=== PATIENT | female | born 1975 | race Caucasian/White ===

== ENCOUNTER 2017-12-25 13:13 | Emergency (ER) | payer MEDICAID ==
[2017-12-25 13:40] VITALS: BP 113/68
== END 2017-12-25 15:20 | disposition left against medical advice (07) ==
LOC: ED 13:13
DX: R22.1 Localized swelling, mass and lump, neck (principal); R19.00 Intra-abdominal and pelvic swelling, mass and lump, unspecified site; R50.9 Fever, unspecified; Z53.21 Procedure and treatment not carried out due to patient leaving prior to being seen by health care provider
CPT/HCPCS: 96365; 99282

== ENCOUNTER 2018-02-08 09:40 | Emergency (ER) | payer MEDICAID ==
[2018-02-08 10:12] VITALS: BP 117/70
[2018-02-08] MEDS ORDERED: HYDROcod/ACETAM 10 MG/325 MG TABLET PO STA (10:56)
[2018-02-08] MEDS ORDERED: diazePAM 5 MG TABLET PO STA (10:56)
--- NOTE | 2018-02-08 10:59 | ED Physician Documentation ---
History of Present Illness - Stated complaint Stated Complaint: BACK - Chief complaint Chief Complaint: General - History obtained from History obtained from: Patient - Additonal information Additional information: 42-year-old female presents the emergency department with lower back pain and spasm which has been ongoing. The patient injured her back after working out several weeks ago. The patient's symptoms were improving until yesterday when she moved wrong and redeveloped the pain and spasm. The patient did experience some radiation into her buttocks. The patient denies saddle anesthesia, urinary retention, hematuria, fever, history of IV drug use or motor weakness. Symptoms are described as moderate. No significant improvement with [id number] Motrin. No other associated symptoms. Review of Systems Constitutional: denies: Fever, Chills, Sweats Ears: denies: Ear pain Nose: denies: Congestion Throat: denies: Sore throat Cardiac: denies: Chest pain / pressure Respiratory: denies: Cough GI: denies: Abdominal Pain : denies: Dysuria, Incontinent, Hematuria Musculoskeletal: reports: Back pain Neurologic: denies: Generalized weakness, Numbness PD PAST MEDICAL HISTORY - Past Medical History Past Medical History: No - Past Surgical History Past Surgical History: Yes Ortho: Shoulder arthroplasty - Present Medications Home Medications: Ambulatory Orders Medication Instructions Recorded Confirmed Naproxen [Naprosyn] 500 mg PO BID PRN 30 Days #30 02/08/18 tablet diazePAM [Valium] 5 mg PO TID PRN #20 tablet 02/08/18 - Allergies Allergies/Adverse Reactions: Allergies Allergy/AdvReac Type Severity Reaction Status Date / Time bee venom protein (honey bee) Allergy Anaphylaxis Verified 02/08/18 10:13 egg Allergy Hives Verified 02/08/18 10:13 - Social History Does the pt smoke?: No Smoking Status: Former smoker Does the pt drink ETOH?: No Does the pt have substance abuse?: No - Immunizations Immunizations are current?: No Immunizations: TDAP >10years/unknown PD ED PE NORMAL - General General: Alert and oriented X 3 - HEENT HEENT: Atraumatic - Cardiac Cardiac: RRR - Respiratory Respiratory: No respiratory distress - Back Back: Other (The patient has no midline tenderness of the thoracic or lumbar spinous processes. The patient does have paraspinal muscle tenderness worse on the right lumbar paraspinal muscles. No skin changes, rash, signs of abscess or crepitus.) - Derm Derm: Normal color - Extremities Extremities: No deformity - Neuro Neuro: Alert and oriented X 3, No motor deficit, Other (The patient has 5/5 muscle strength in the bilateral lower extremities and has 2/4 patellar reflexes and normal sensation light touch of the lower extremities) - Psych Psych: Normal mood Results - Vitals Vitals: Vital Signs - 24 hr 02/08/18 10:10 Temperature 37 C Heart Rate 71 Respiratory 16 Rate Blood Pressure 117/70 O2 Saturation 99 Oxygen O2 Source Room air PD MEDICAL DECISION MAKING - ED course ED course: The patient's symptoms seem to be consistent with a musculoskeletal etiology for the source of her pain. TheHas no red flags to suggest epidural abscess or acute cauda equina. Currently, there is no injury that would suggest fracture of the lumbar spine and currently I do not think x-rays would be of much utility. The patient appears appropriate for ongoing outpatient management. I discussed with her the findings and plan. The patient understands and agrees. I discussed warning signs and recommended returning to the emergency department immediately for any worsening or any concerns. Departure - Departure Disposition: 01 Home, Self Care Condition: Good Instructions: ED Back Care Tips, ED Exercises Lumbar Muscles, ED Sprain Strain Lumbar Follow-Up: [facility] [Provider Group] [facility] [Provider Group] [facility] [Provider Group] [facility] [Provider Group] Prescriptions: diazePAM [Valium] 5 mg PO TID PRN #20 tablet PRN Reason: Spasms Naproxen [Naprosyn] 500 mg PO BID PRN 30 Days #30 tablet PRN Reason: Pain Comments: Please follow-up with primary care. Please asked them to arrange for outpatient physical therapy to further manage her pain. Please avoid any vigorous workouts. You may also require an outpatient MRI if your symptoms are not improving. Please return back to the emergency department immediately for any worsening or concerns.
== END 2018-02-08 12:01 | disposition home or self-care (01) ==
LOC: ED 09:40 → MERGE 09:40 → ED 12:01
DX: M54.5 Low back pain (principal); M62.830 Muscle spasm of back; Z87.891 Personal history of nicotine dependence
CPT/HCPCS: 99283; A9270; 81001; 81025; 87086

== ENCOUNTER 2018-05-27 08:00 | Outpatient (CLI) | payer MEDICAID ==
[2018-05-27 18:08] LABS: BASOPHILS % (AUTO) 0.4 %; EOSINOPHILS # (AUTO) 0.1 10^3/uL (0.0-0.7); EOSINOPHILS % (AUTO) 1.8 %; HGB - HEMOGLOBIN 14.4 g/dL (12.0-16.0); LYMPHOCYTES # (AUTO) 2.1 10^3/uL (1.5-3.5); LYMPHOCYTES % (AUTO) 33.9 %; MEAN CORPUSCULAR HEMOGLOBIN 28.3 pg (27.0-31.0); MEAN CORPUSCULAR VOLUME 88.4 fL (81.0-99.0); MEAN PLATELET VOLUME 8.6 fL (7.9-10.8); MONOCYTES # (AUTO) 0.4 10^3/uL (0.0-1.0); MONOCYTES % (AUTO) 7.1 %; NEUTROPHILS # (AUTO) 3.5 10^3/uL (1.5-6.6); NEUTROPHILS % (AUTO) 56.8 %; PLT - PLATELET COUNT 286 10^3/uL (130-450); RED CELL DISTRIBUTION WIDTH 14.3 % (12.0-15.0); WHITE BLOOD COUNT 6.2 x10^3/uL (4.8-10.8)
[2018-05-27 18:13] LABS: ALBUMIN/GLOBULIN RATIO 1.7 (1.0-2.2); ALKALINE PHOSPHATASE 53 IU/L (42-121); ALT ALANINE AMINOTRANSFERASE 49 IU/L (10-60); AST ASPARTATE AMINOTRANSFERASE 30 IU/L (10-42); BILIRUBIN,TOTAL 0.9 mg/dL (0.2-1.0); BUN - BLOOD UREA NITROGEN 16 mg/dL (6-20); CALCIUM 9.5 mg/dL (8.5-10.3); CARBON DIOXIDE - CO2 27 mmol/L (21-32); CHLORIDE 102 mmol/L (101-111); CHOL/HDL RATIO 2.3 (<4.4); CHOLESTEROL 202 mg/dL; CREATININE 0.7 mg/dL (0.4-1.0); GFR - MDRD 93 (>89); GLUCOSE 92 mg/dL (70-100); HDL CHOLESTEROL 89 mg/dL; LDL CHOLESTEROL,CALCULATED 99 mg/dL; LDL/HDL RATIO 1.1 (<4.4); SODIUM 138 mmol/L (135-145); TOTAL PROTEIN 7.9 g/dL (6.7-8.2); VLDL CHOLESTEROL 14 mg/dL
[2018-05-27 18:51] LABS: HB2 TOTAL 16.7 g/dL; HEMOGLOBIN A1C 0.49 g/dL; HEMOGLOBIN A1C % 4.8 % (4.6-6.2)
[2018-05-28 12:43] LABS: HEPATITIS C ANTIBODY NON-REACTIVE (NON-REACTIVE)
[2018-05-28 13:21] LABS: HIV AG/AB 4TH GEN NON-REACTIVE (NON-REACTIVE)
[2018-05-29 13:10] LABS: HSV 2 IGG TYPE SPECIFIC AB <0.90 index
== END 2018-05-27 23:59 | disposition home or self-care (01) ==
LOC: LAB.S 08:00
PROVIDERS: ATTEND Nurse Practitioner
DX: Z00.00 Encounter for general adult medical examination without abnormal findings (principal); Z20.2 Contact with and (suspected) exposure to infections with a predominantly sexual mode of transmission
CPT/HCPCS: 36415; 80053; 80061; 82306; 83036; 83721; 84443; 85025; 86695; 86696; 86803; 87389

== ENCOUNTER 2018-07-02 15:50 | Outpatient (CLI) | payer MEDICAID ==
--- NOTE | 2018-07-03 11:10 | XRAY Report ---
Reason: ANKLE PAIN, RIGHT Procedure Date: 07/02/2018 Accession Number: [id number] / [id number] Procedure: XR - Ankle 3 View RT CPT Code: FULL RESULT: EXAM: RIGHT ANKLE RADIOGRAPHY EXAM DATE: 07/02/2018 04:34 PM. CLINICAL HISTORY: Ankle pain, right. COMPARISON: None. TECHNIQUE: 3 views. FINDINGS: Bones: Normal. No fractures or bone lesions. Joints: Normal. No effusion. No subluxations. The ankle mortise is normally aligned. Soft Tissues: Normal. No soft tissue swelling. IMPRESSION: Normal ankle radiography. [facility]
== END 2018-07-02 15:51 | disposition home or self-care (01) ==
LOC: DI 15:50
PROVIDERS: ATTEND Nurse Practitioner
DX: M25.571 Pain in right ankle and joints of right foot (principal)

== ENCOUNTER 2018-07-02 15:53 | Outpatient (CLI) | payer MEDICAID ==
--- NOTE | 2018-07-03 10:17 | Mammography Report ---
Reason: ANNUAL SCREENING Procedure Date: 07/02/2018 Accession Number: [id number] / [id number] Procedure: HOSSEIN - Screening Mammo Dig Bilat CPT Code: FULL RESULT: EXAM: Screening Mammo Dig Bilat DATE: 07/02/2018 4:20 PM CLINICAL HISTORY: Screening encounter. Baseline mammogram. No reported risk factors. TECHNIQUE: Bilateral CC and MLO views were obtained. A left laterally exaggerated CC view is obtained. COMPARISON: None FINDINGS: The breasts demonstrate heterogeneously dense fibroglandular parenchyma bilaterally. There are coarse typically benign calcifications. No suspicious masses, clustered microcalcifications, or regions of architectural distortion are identified. IMPRESSION: Benign findings RECOMMENDATION: Routine annual screening unless otherwise clinically indicated. BIRADS CATEGORY 2: Benign findings STANDARD QUALIFYING STATEMENTS: 1. This examination was reviewed with the aid of Computer-Aided Detection (CAD). 2. A negative or benign imaging report should not delay biopsy if clinically suspicious findings are present. Consider surgical consultation if warrented. More than 5% of cancers are not identified by imaging. 3. Dense breasts may obscure an underlying neoplasm.
== END 2018-07-02 15:54 | disposition home or self-care (01) ==
LOC: DI 15:53
DX: Z12.31 Encounter for screening mammogram for malignant neoplasm of breast (principal); M25.571 Pain in right ankle and joints of right foot
CPT/HCPCS: 77067

== ENCOUNTER 2019-11-20 08:00 | Outpatient (CLI) | payer MEDICAID ==
--- NOTE | 2019-10-17 18:11 | XRAY Report ---
PROCEDURE: Shoulder 3 View LT INDICATIONS: PAIN IN LEFT SHOULDER TECHNIQUE: 3 views of the shoulder were acquired. COMPARISON: None. FINDINGS: Bones: No fractures or dislocations. No suspicious bony lesions. Visualized ribs appear intact. Soft tissues: No suspicious soft tissue calcifications. IMPRESSION: No acute radiographic findings. If pain persists, advanced imaging with MR or CT could b e used to further characterize findings. Reviewed by: Norma Jimenez MD on 10/17/2019 6:10 PM PDT Approved by: Norma Jimenez MD on 10/17/2019 6:10 PM PDT Station ID: [id number]
== END 2019-11-20 23:59 | disposition home or self-care (01) ==
LOC: DI.S 08:00
PROVIDERS: ATTEND Emergency Medicine
DX: M25.512 Pain in left shoulder (principal)

== ENCOUNTER 2020-01-07 09:55 | Outpatient (CLI) | payer MEDICAID ==
[2020-01-07 15:27] LABS: BASOPHILS % (AUTO) 0.5 %; EOSINOPHILS # (AUTO) 0.1 10^3/uL (0.0-0.7); EOSINOPHILS % (AUTO) 1.6 %; HGB - HEMOGLOBIN 12.7 g/dL (12.0-16.0); LYMPHOCYTES % (AUTO) 34.8 %; MEAN CORPUSCULAR HGB CONC 30.8 g/dL (32.0-36.0); MEAN CORPUSCULAR VOLUME 90.7 fL (81.0-99.0); MEAN PLATELET VOLUME 10.2 fL (7.9-10.8); MONOCYTES # (AUTO) 0.4 10^3/uL (0.0-1.0); NEUTROPHILS # (AUTO) 3.1 10^3/uL (1.5-6.6); NEUTROPHILS % (AUTO) 55.9 %; PLT - PLATELET COUNT 302 10^3/uL (130-450); RED BLOOD COUNT 4.54 10^6/uL (4.20-5.40); RED CELL DISTRIBUTION WIDTH 13.1 % (12.0-15.0); WHITE BLOOD COUNT 5.6 x10^3/uL (4.8-10.8)
[2020-01-07 15:29] LABS: ALBUMIN 4.3 g/dL (3.2-5.5); ALBUMIN/GLOBULIN RATIO 1.7 (1.0-2.2); ALKALINE PHOSPHATASE 45 IU/L (42-121); ALT ALANINE AMINOTRANSFERASE 15 IU/L (10-60); AST ASPARTATE AMINOTRANSFERASE 16 IU/L (10-42); BILIRUBIN,TOTAL 0.9 mg/dL (0.2-1.0); BUN - BLOOD UREA NITROGEN 16 mg/dL (6-20); CALCIUM 9.4 mg/dL (8.5-10.3); CARBON DIOXIDE - CO2 26 mmol/L (21-32); CHLORIDE 104 mmol/L (101-111); CHOL/HDL RATIO 2.3 (<4.4); CHOLESTEROL 166 mg/dL; CREATININE 0.7 mg/dL (0.4-1.0); GLUCOSE 86 mg/dL (70-100); HDL CHOLESTEROL 72 mg/dL; SODIUM 139 mmol/L (135-145); TOTAL PROTEIN 6.8 g/dL (6.7-8.2)
== END 2020-01-07 09:56 | disposition home or self-care (01) ==
LOC: LAB.S 09:55
PROVIDERS: ATTEND Registered Nurse
DX: Z00.00 Encounter for general adult medical examination without abnormal findings (principal)
CPT/HCPCS: 36415; 80053; 80061; 83721; 84443; 85025

== ENCOUNTER 2020-02-23 08:00 | Outpatient (CLI) | payer MEDICAID ==
[2020-02-24 19:58] LABS: CANDIDA GROUP DNA NEGATIVE (NEGATIVE); CANDIDA KRUSEI DNA NEGATIVE (NEGATIVE); TRICHOMONAS VAGINALIS DNA NEGATIVE (NEGATIVE)
== END 2020-02-23 23:59 | disposition home or self-care (01) ==
LOC: LAB.R 08:00
PROVIDERS: ATTEND Obstetrics & Gynecology
DX: N76.0 Acute vaginitis (principal)
CPT/HCPCS: 87661; 87801